=== PATIENT | male | born 1945 | race Caucasian/White ===

== ENCOUNTER 2017-01-13 09:41 | Emergency (ER) | payer BC ==
[2017-01-13 09:46] VITALS: BP 153/80; PULSE 74; TEMP 98.5; BMI 27.3
--- NOTE | 2017-01-13 09:53 | PDOC ---
History of Present Illness - General Chief Complaint: Nausea/Vomiting Stated Complaint: VOMITING Time Seen by Provider: 01/13/17 09:52 Past History - Past Medical History Allergies/Adverse Reactions: Allergies Allergy/AdvReac Type Severity Reaction Status Date / Time No Known Allergies Allergy Verified 01/13/17 09:42 Home Medications: Ambulatory Orders Etanercept [Enbrel] 50 mg SQ WEEKLY 07/01/13 Other medical history: RA, DIVERTICULITIS - Immunization History Td Vaccination: Yes Immunization Up to Date: No - Psycho/Social/Smoking Cessation Hx Suicidal Ideation: No Smoking Status: No Smoking History: Never smoked Number of Cigarettes Smoked Daily: 0 Hx Alcohol Use: Yes Drug/Substance Use Hx: No Substance Use Type: Alcohol *Physical Exam - Vital Signs Last Vital Signs Temp Pulse Resp BP Pulse Ox 98.5 F 74 18 153/80 97 01/13/17 09:41 01/13/17 09:41 01/13/17 09:41 01/13/17 09:41 01/13/17 09:41 - Physical Exam General Appearance: Yes: Nourished, Appropriately Dressed. No: Apparent Distress, Disheveled, Mild Distress, Moderate Distress, Severe Distress, Alcohol on Breath, Intoxicated, Cachetic, Obese, Thin, Other HEENT: positive: EOMI, KELSEY, Normal ENT Inspection, Normal Voice, Symmetrical, TMs Normal, Pharynx Normal. negative: Pale Conjunctivae, Photophobia, Scleral Icterus (R), Scleral Icterus (L), Muffled/Hoarse voice, Pharyngeal Erythema, Tonsillar Exudate, Tonsillar Erythema, Nasal Congestion, Rhinorrhea, Sinus Tenderness, Orbits, Hearing Decreased, Hearing Grossly Normal, TM Bulging, TM Dull, TM Erythema, Lesions, Queen, Excessive drooling, Thrush, Other Neck: positive: Normal Thyroid, Supple. negative: Tender, Trachea midline, Rigid, Carotid bruit, Decreased range of motion, Stridor, Lymphadenopathy (R), Lymphadenopathy (L), Rigidity, Tender lateral, Tender midline, Thyromegaly, Other Respiratory/Chest: positive: Lungs Clear, Normal Breath Sounds. negative: Chest Tender, Respiratory Distress, Accessory Muscle Use, Labored Respiration, Rapid RR, Decreased Breath Sounds, Paradoxal Breathing, Crackles, Rales, Rhonchi , Stridor, Wheezing, Hyperresonant, Dullness, Plerual Rub, Other Cardiovascular: positive: Regular Rhythm, Regular Rate, S1, S2. negative: Edema , JVD, Murmur, Bradycardia, Tachycardia, Diastolic Murmur, Systolic Murmur, Gallop/S3, Gallop/S4, Irregularly Irregular, Irregular, Other Gastrointestinal/Abdominal: positive: Normal Bowel Sounds, Flat, Soft. negative : Tender, Organomegaly, Pulsatile Mass, Increased Bowel Sounds, Decreased BS, Protuberent, Distended, Guarding, Rebound, Tenderness, Hernia, Mass, Hepatomegaly, Spleenomegaly, Other Musculoskeletal: positive: Normal Inspection. negative: CVA Tenderness, CVA Tenderness (R), CVA Tenderness (L), Decreased Range of Motion, Muscle Spasm, Vertebral Tenderness, Other Extremity: positive: Normal Capillary Refill, Normal Inspection, Normal Range of Motion. negative: Tender, Pelvis Stable, Coldness, Cyanosis, Delayed Capillary Refill, Pedal Edema, Swelling, Calf Tenderness, Erythema, Inflammation , Other Integumentary: positive: Normal Color, Dry, Warm. negative: Cyanotic, Erythema , Jaundice, Mottled, Pale, Cold, Clammy, Diaphoresis, Moist, Hives, Petechiae, Rash, Swelling, Ecchymosis, Bruising, Other Neurologic: positive: locator II-XII NML intact, Fully Oriented, Alert, Normal Mood/ Affect, Normal Response, Motor Strength 5/5. negative: Abnormal Cranial NS, Respond to painful stimul, Responsive, EOM Palsy, Facial Droop, Numbness, Sensory Deficit, Finger to Nose, Confused, Disoriented, Depressed Affect, Babinski, Other ED Treatment Course - LABORATORY CBC & Chemistry Diagram: 01/13/17 09:59 01/13/17 09:59 Medical Decision Making - Medical Decision Making 01/13/17 10:05 Ptr has food poisoning from the octopus sautee salad that he ate yesterday. Pt has vomited multiple times overnight. Now with dehydration. No abd pain; mouth dry is his only complaint. Pt has a hx of diverticulitis. No other complaints. No past surgeries. We will check CBC and chem and give NSS 1L and pepcid and reglan. *DC/Admit/Observation/Transfer Diagnosis at time of Disposition: Food poisoning - Discharge Dispostion Disposition: HOME Condition at time of disposition: Stable Admit: No - Patient Instructions Printed Discharge Instructions: DI for Food Poisoning
[2017-01-13] MEDS ORDERED: SODIUM CHLORIDE 0.9% 500 ML INFUS.BAG IV ONE (09:58)
[2017-01-13] MEDS ORDERED: FAMOTIDINE 20 MG/50 ML IVPB 50 ML IVPB ONE (09:58)
[2017-01-13] MEDS ORDERED: METOCLOPRAMIDE HCL INJECTION 10 MG/2 ML VIAL IVPB ONE (09:59)
[2017-01-13 10:25] LABS: BASOPHIL 4.3 % (0-2.0); EOSINOPHIL 0.2 % (0-4.5); MCH 30.5 pg (25.7-33.7); MCHC 33.5 g/dl (32.0-35.9); MEAN CELL VOLUME 90.9 fl (80-96); MEAN PLT VOLUME 9.4 fl (7.5-11.1); NEUTROPHILS 81.6 % (42.8-82.8); PLATELET COUNT 207 K/MM3 (134-434); RDW 12.8 % (11.9-15.9); WHITE BLOOD COUNT 9.1 K/mm3 (4.0-10.0)
[2017-01-13 10:56] LABS: ALK PHOS 54 U/L (32-92); ANION GAP 6 (8-16); BILIRUBIN,TOTAL 1.3 mg/dl (0.2-1.0); CALCIUM 8.8 mg/dl (8.4-10.2); CO2 28 mmol/L (22-28); GLUCOSE,RANDOM 114 mg/dl (74-106); SGOT/AST 21 U/L (10-42); SGPT/ALT 18 U/L (10-40); TOT PROT 6.3 g/dl (6.4-8.3)
== END 2017-01-13 11:27 | disposition home or self-care (01) ==
LOC: FER 09:41
PROC: 3E033GC Introduction of Other Therapeutic Substance into Peripheral Vein, Percutaneous Approach (ICD-10-PCS; principal; 2017-01-13)
DX: T62.91XA Toxic effect of unspecified noxious substance eaten as food, accidental (unintentional), initial encounter (principal); Y92.9 Unspecified place or not applicable; M06.9 Rheumatoid arthritis, unspecified; K57.90 Diverticulosis of intestine, part unspecified, without perforation or abscess without bleeding
CPT/HCPCS: 36415; 80053; 85025; 99283-25

== ENCOUNTER 2018-11-12 02:57 | Emergency (ER) | payer BC ==
--- NOTE | 2018-11-12 03:05 | PDOC ---
History of Present Illness - General Chief Complaint: Respiratory Stated Complaint: URI Time Seen by Provider: 11/12/18 02:59 - History of Present Illness Initial Comments: 11/12/18 03:16 This 73-year-old man with a history of rheumatoid arthritis presents with several day history of nonproductive cough and intermittent wheezing. He was seen by an associate of his PMD 2 days ago and amoxicillin/benzonatate was prescribed. Patient presents with persistent cough, wheezing and difficulty sleeping secondary to his symptoms. Patient states that in the past, he has required an inhaler at times although he has no previous history of asthma and is not a smoker. No history of shortness of breath/chest pain. Past History - Past Medical History Allergies/Adverse Reactions: Allergies Allergy/AdvReac Type Severity Reaction Status Date / Time No Known Allergies Allergy Verified 01/13/17 09:42 Home Medications: Ambulatory Orders Albuterol Sulfate Inhaler - [Ventolin HFA Inhaler -] 1 - 2 inh PO Q4H PRN #1 inhaler 11/12/18 Amoxicillin - [Amoxicillin 500mg Capsule -] 500 mg PO TID 11/12/18 Azithromycin 250 mg PO DAILY #4 tablet 11/12/18 Benzonatate 200 mg PO TID PRN 11/12/18 Doxazosin Mesylate 11/12/18 Hydrocodone Bit/Homatrop Me-Br [Hydrocodone-Homatropine Syrup] 5 ml PO TID PRN # 90 ml MDD 15 ml 11/12/18 Methotrexate 11/12/18 - Immunization History Td Vaccination: Yes Immunization Up to Date: No - Suicide/Smoking/Psychosocial Hx Smoking Status: No Smoking History: Never smoked Number of Cigarettes Smoked Daily: 0 Hx Alcohol Use: Yes Drug/Substance Use Hx: No Substance Use Type: Alcohol Review of Systems - Review of Systems Able to Perform ROS?: Yes Comments:: 12 point review of systems is negative except for what is noted in the history of present illness *Physical Exam - Physical Exam Comments: GENERAL: Adult male, speaking in full sentences, alert and oriented 3, in no acute respiratory distress HEAD: Normal with no signs of trauma. EYES: PERRLA, EOMI, sclera anicteric, conjunctiva clear. ENT: Ears normal, nares patent, oropharynx clear without exudates. Dry mucous membranes. NECK: Normal range of motion, supple without lymphadenopathy, JVD, or masses. LUNGS: Breath sounds equal, scattered expiratory wheezing left greater than right, no crackles. HEART:Regular rate and rhythm, normal S1 and S2 without murmur, rub or gallop. ABDOMEN:.normal bowel sounds No guarding,tenderness or rebound.No masses No distention. EXTREMITIES: Normal range of motion, no edema. No clubbing or cyanosis. No erythema, or tenderness. NEUROLOGICAL: Cranial nerves II through XII grossly intact. Normal speech. No focal neurological deficits. MUSCULOSKELETAL: Back non-tender to palpation, no CVA tenderness SKIN: Warm, Dry, normal turgor, no rashes or lesions noted. Progress Note - Progress Note Progress Note: Patient received DuoNeb treatment for his wheezing. Repeat chest exam after nebulizer treatment revealed marked improvement in air exchange; no significant wheezing heard. Clinical presentation most consistent with bronchitis or early pneumonia. Antibiotic will be changed to azithromycin (Z-Milton). First dose of 500 mg will be given here in the emergency room. Prescription for 250 mg daily for 4 more days sent to his pharmacy. Albuterol inhaler to be used 1-2 puffs every 4-6 hours as needed for wheezing, prescribed. Benzonatate can be continued as needed for [id number] cough. Patient states that he has severe cough that keeps him awake at night. Small (90 mL) prescription for hydrocodone syrup will be sent(5 mL up to 3 times a day as needed for severe cough). Patient should return to the ER if he has shortness of breath/persistent wheezing/high fever. He should plan to follow up with his medical doctor within the next 5 days. *DC/Admit/Observation/Transfer Diagnosis at time of Disposition: Bronchitis - Discharge Dispostion Disposition: HOME Condition at time of disposition: Stable - Prescriptions Prescriptions: Albuterol Sulfate Inhaler - [Ventolin HFA Inhaler -] 1 - 2 inh PO Q4H PRN #1 inhaler PRN Reason: Wheezing Azithromycin 250 mg PO DAILY #4 tablet Hydrocodone Bit/Homatrop Me-Br [Hydrocodone-Homatropine Syrup] 5 ml PO TID PRN # 90 ml MDD 15 ml PRN Reason: Cough - Referrals - Patient Instructions Printed Discharge Instructions: DI for Acute Bronchitis Additional Instructions: Rest; drink plenty of water Stop amoxicillin; begin azithromycin (take with food) Continue azithromycin 250 mg daily with next dose tomorrow with dinner Benzonatate as needed for mild to moderate cough Hydrocodone syrup for severe cough; this will make you sleepy, take only at night Albuterol inhaler 1-2 puffs every 4 hours as needed for wheezing Return to ER if you have severe wheezing/shortness of breath/high fever Follow-up with your medical doctor within the next 5 days - Post Discharge Activity
[2018-11-12 03:07] VITALS: BP 123/78; PULSE 87; TEMP 101.3; BMI 27.3
[2018-11-12] MEDS ORDERED: ALBUTEROL SO4 2.5/IPRATROPIUM 0.5 INH SOL 3 ML VIAL.NEB. NEB ONE ×2 (03:15)
[2018-11-12] MEDS ORDERED: AZITHROMYCIN 250 MG TABLET PO ONE (03:38)
[2018-11-12] MEDS ORDERED: AZITHROMYCIN 500 MG TABLET ONE (03:39)
== END 2018-11-12 03:48 | disposition home or self-care (01) ==
LOC: FER 02:57
PROC: 3E0F7GC Introduction of Other Therapeutic Substance into Respiratory Tract, Via Natural or Artificial Opening (ICD-10-PCS; principal; 2018-11-12)
DX: J40 Bronchitis, not specified as acute or chronic (principal); M06.9 Rheumatoid arthritis, unspecified
CPT/HCPCS: 99281-25

== ENCOUNTER 2018-11-13 03:05 | Inpatient (IN) | payer BC ==
--- NOTE | 2018-11-13 03:23 | PDOC ---
History of Present Illness - General Chief Complaint: Shortness of Breath Stated Complaint: SOB Time Seen by Provider: 11/13/18 03:08 - History of Present Illness Initial Comments: 11/13/18 05:42 73 years old past medical history significant for rheumatoid arthritis on methotrexate, reactive airway disease in the past but no history of asthma or COPD presents to the emergency department with several day history of cough wheezing difficulty breathing. His primary care provider started him on amoxicillin and benzonate 3 days ago. Last night he presented to the emergency department with wheezing and shortness of breath was changed to amoxicillin was given nebulizer breathing treatments and Hycodan for his cough with slight improvement in symptomatology but returned to the emergency department tonight for worsening symptoms. Symptoms are persistent constant with no exacerbating or alleviating factors not relieved by home nebulizer treatment or antibiotics. Past History - Past Medical History Allergies/Adverse Reactions: Allergies Allergy/AdvReac Type Severity Reaction Status Date / Time No Known Allergies Allergy Verified 11/13/18 03:06 Home Medications: Ambulatory Orders Albuterol Sulfate Inhaler - [Ventolin HFA Inhaler -] 1 - 2 inh PO Q4H PRN #1 inhaler 11/12/18 Amoxicillin - [Amoxicillin 500mg Capsule -] 500 mg PO TID 11/12/18 Azithromycin 250 mg PO DAILY #4 tablet 11/12/18 Benzonatate 200 mg PO TID PRN 11/12/18 Hydrocodone Bit/Homatrop Me-Br [Hydrocodone-Homatropine Syrup] 5 ml PO TID PRN # 90 ml MDD 15 ml 11/12/18 Doxazosin Mesylate [Cardura Xl] 4 mg PO DAILY 11/13/18 Methotrexate Sodium [Methotrexate] 2.5 mg PO QUEZADA 11/13/18 COPD: No Other medical history: RA - Immunization History Td Vaccination: Yes Immunization Up to Date: No - Suicide/Smoking/Psychosocial Hx Smoking Status: No Smoking History: Former smoker Have you smoked in the past 12 months: No Number of Cigarettes Smoked Daily: 0 If you are a former smoker, when did you quit?: 42 yrs ago Information on smoking cessation initiated: No Hx Alcohol Use: No Drug/Substance Use Hx: No Substance Use Type: Alcohol Review of Systems - Review of Systems Comments:: 11/13/18 05:42 ROS: A complete review of 10 out of 10 review of systems is taken and is negative apart from what is previously mentioned below and in the HPI. *Physical Exam - Vital Signs Last Vital Signs Temp Pulse Resp BP Pulse Ox 98.5 F 76 19 156/90 95 11/13/18 03:07 11/13/18 03:07 11/13/18 03:07 11/13/18 03:07 11/13/18 03:07 - Physical Exam Comments: 11/13/18 05:43 Vitals: Triage Vital signs reviewed General Appearance: no acute distress, well nourished well developed, Head: Atraumatic, Chest Wall: Nontender Cardiac: Regular rate and rhythym, no murmurs, no rubs, no gallops, Lungs: Bilateral end expiratory wheeze Abdomen: Soft, non distended, normal bowel sounds, non tender to palpation Extremities: Full range of motion to all extremities, no cyanosis, clubbing, or edema Skin: Warm and dry, no rashes or lesions, no rash, no petechiae Psych: normal mood, normal affect Moderate Sedation - Procedure Monitoring Vital Signs: Procedure Monitoring Vital Signs Temperature 98.5 F 11/13/18 03:07 Pulse Rate 76 11/13/18 03:07 Respiratory Rate 19 11/13/18 03:07 Blood Pressure 156/90 11/13/18 03:07 O2 Sat by Pulse Oximetry (%) 95 11/13/18 03:07 ED Treatment Course - LABORATORY CBC & Chemistry Diagram: 11/13/18 04:20 11/13/18 04:20 Medical Decision Making - Medical Decision Making 11/13/18 05:44 73 years old past medical history significant for rheumatoid arthritis on methotrexate, reactive airway disease in the past but no history of asthma or COPD presents to the emergency department with several day history of cough wheezing difficulty breathing. His primary care provider started him on amoxicillin and benzonate 3 days ago. Last night he presented to the emergency department with wheezing and shortness of breath was changed to amoxicillin was given nebulizer breathing treatments and Hycodan for his cough with slight improvement in symptomatology but returned to the emergency department tonight for worsening symptoms. Symptoms are persistent constant with no exacerbating or alleviating factors not relieved by home nebulizer treatment or antibiotics. Patient returns to the emergency department with persistent wheezing We'll treat with 3 DuoNeb's IV Solu-Medrol observe and reassess Reevaluation 430 patient wheezing and dishing and normal albuterol given now with room air oxygen of 89-91% Reevaluation 5:30 patient requiring supplemental oxygen to maintain sat of 95% still with mild expiratory wheezes at this point given persistence of symptomatology we'll observe in hospital for IV steroids continue albuterol treatments and further management. *DC/Admit/Observation/Transfer Diagnosis at time of Disposition: Acute wheezy bronchitis - Discharge Dispostion Condition at time of disposition: Stable Decision to Admit order: Yes - Referrals - Patient Instructions - Post Discharge Activity
[2018-11-13] MEDS ORDERED: ALBUTEROL SO4 2.5/IPRATROPIUM 0.5 INH SOL 3 ML VIAL.NEB. NEB ONE ×2 (03:24→03:32)
[2018-11-13] MEDS ORDERED: methylPREDNISolone NA SUCC 125 MG/2 ML VIAL IVPUSH ONE (03:24)
[2018-11-13] MEDS ORDERED: methylPREDNISolone NA SUCC 125 MG/2 ML VIAL ONE (03:31)
[2018-11-13] MEDS ORDERED: ALBUTEROL SO4 0.083% IH SOL 2.5 MG/3 ML VIAL.NEB. NEB ONE (04:48)
[2018-11-13] MEDS: ALBUTEROL SO4 0.083% IH SOL 2.5 MG/3 ML VIAL.NEB. NEB SCH ×7 (04:50→21:25)
[2018-11-13] MEDS ORDERED: HEMOQUE TEST 1 EACH EACH ONE ×2 (04:55→05:01)
[2018-11-13 04:58] LABS: BASO % 0.7 % (0-2.0); EOS % 0.8 % (0-4.5); HEMATOCRIT 39.1 % (35.4-49); HEMOGLOBIN 13.8 GM/dL (11.7-16.9); LYMPH % 28.9 % (8-40); MCH 32.7 pg (25.7-33.7); MCHC 35.2 g/dl (32.0-35.9); MEAN CELL VOLUME 92.8 fl (80-96); MEAN PLT VOLUME 9.4 fl (7.5-11.1); NEUT % 56.6 % (42.8-82.8); PLATELET COUNT 160 K/MM3 (134-434); RBC 4.21 M/mm3 (4.00-5.60); RDW 14.8 % (11.9-15.9); WHITE BLOOD COUNT 4.8 K/mm3 (4.0-10.0)
[2018-11-13 05:26] LABS: ALBUMIN 3.5 g/dl (3.4-5.0); ALK PHOS 65 U/L (45-117); ANION GAP 5 MMOL/L (8-16); BILIRUBIN,TOTAL 0.5 mg/dL (0.2-1); BLOOD UREA NITROGEN 15 mg/dL (7-18); CALCIUM 8.3 mg/dL (8.5-10.1); CHLORIDE 101 mmol/L (98-107); CO2 30 mmol/L (21-32); CREATININE 1.1 mg/dL (0.55-1.3); GLUCOSE,RANDOM 93 mg/dL (74-106); POTASSIUM 4.2 mmol/L (3.5-5.1); SGOT/AST 26 U/L (15-37); SGPT/ALT 29 U/L (13-61); SODIUM 137 mmol/L (136-145); TOT PROT 6.5 g/dl (6.4-8.2)
[2018-11-13] MEDS ORDERED: guaiFENesin 200 MG/10 ML 10 ML UNIT-DOSE CUPS PO PRN (06:40)
--- NOTE | 2018-11-13 07:56 | HP ---
CHIEF COMPLAINT: Wheezing, SOB PCP: Latanya Del Toro HISTORY OF PRESENT ILLNESS: 73 year-old male with a PMH significant for rheumatoid arthritis. Patient has been feeling fatigued with SOB, BEDOLLA, and decreased exercise tolerance for months. He suffers from sleep apnea x 5 years but does not use CPAP. He often awakens from sleep feeling startled, anxious, and SOB. About three days ago patient started to experience cough, wheezing, and sweats. He was seen by his PMD on 11/10 and prescribed amoxicillin and Tessalon. Patient then presented to the ED on 11/11 and was given nebulizer treatments and prescriptions for azithromycin and Hycodan cough syrup. Patient re-presented to the ED early this morning for continued symptoms. In the ED patient was wheezing and satting 89-91 % on room air. Patient denies cardiac history but states he had an echo one year ago for "skipped beats." He has been told he has reactive airway disease and uses an inhaler on occasion. ER course was notable for: (1) afebrile, WBC 4.8k (2) CXR: no infiltrate (3) duonebs x 3; solumedrol 125mg x 1 Recent Travel: No PAST MEDICAL HISTORY Rheumatoid arthritis PAST SURGICAL HISTORY: Social History: Smoking: quit 32 years ago; smoked for 20+ years Alcohol: occasional Drugs: no Family History: Allergies No Known Allergies Allergy (Verified 11/13/18 03:06) HOME MEDICATIONS: Home Medications Medication Instructions Recorded Albuterol Sulfate Inhaler - 1 - 2 inh PO Q4H PRN #1 inhaler 11/12/18 [Ventolin HFA Inhaler -] Amoxicillin - [Amoxicillin 500mg 500 mg PO TID 11/12/18 Capsule -] Azithromycin 250 mg PO DAILY #4 tablet 11/12/18 Benzonatate 200 mg PO TID PRN 11/12/18 Hydrocodone Bit/Homatrop Me-Br 5 ml PO TID PRN #90 ml MDD 15 ml 11/12/18 [Hydrocodone-Homatropine Syrup] Doxazosin Mesylate [Cardura Xl] 4 mg PO DAILY 11/13/18 Methotrexate Sodium [Methotrexate] 2.5 mg PO QUEZADA 11/13/18 REVIEW OF SYSTEMS CONSTITUTIONAL: Absent: fever, chills, diaphoresis, generalized weakness, malaise, loss of appetite, weight change HEENT: Absent: rhinorrhea, nasal congestion, throat pain, throat swelling, difficulty swallowing, mouth swelling, ear pain, eye pain, visual changes CARDIOVASCULAR: Absent: chest pain, syncope, palpitations, irregular heart rate, lightheadedness , peripheral edema RESPIRATORY: +cough, wheezing, SOB, BEDOLLA, awakes from sleep startled and anxious Absent: shortness of breath, dyspnea with exertion, orthopnea, stridor, hemoptysis GASTROINTESTINAL: Absent: abdominal pain, abdominal distension, nausea, vomiting, diarrhea, constipation, melena, hematochezia GENITOURINARY: Absent: dysuria, frequency, urgency, hesitancy, hematuria, flank pain, genital pain MUSCULOSKELETAL: Absent: myalgia, arthralgia, joint swelling, back pain, neck pain SKIN: Absent: rash, itching, pallor HEMATOLOGIC/IMMUNOLOGIC: Absent: easy bleeding, easy bruising, lymphadenopathy, frequent infections ENDOCRINE: Absent: unexplained weight gain, unexplained weight loss, heat intolerance, cold intolerance NEUROLOGIC: Absent: headache, focal weakness or paresthesias, dizziness, unsteady gait, seizure, mental status changes, bladder or bowel incontinence PSYCHIATRIC: Absent: anxiety, depression, suicidal or homicidal ideation, hallucinations. PHYSICAL EXAMINATION Vital Signs - 24 hr 11/13/18 11/13/18 11/13/18 03:07 03:52 05:53 Temperature 98.5 F Pulse Rate 76 Pulse Rate [ 99 H Left Radial] Respiratory 19 20 Rate Blood Pressure 156/90 Blood Pressure 110/66 [Right Arm] O2 Sat by Pulse 95 95 96 Oximetry (%) GENERAL: Awake, alert, and fully oriented, in no acute distress. HEAD: Normal with no signs of trauma. EYES: Pupils equal, round and reactive to light, extraocular movements intact, sclera anicteric, conjunctiva clear. No lid lag. EARS, NOSE, THROAT: Ears normal, nares patent, oropharynx clear without exudates. Moist mucous membranes. NECK: Normal range of motion, supple without lymphadenopathy, JVD, or masses. LUNGS: Breath sounds equal, clear to auscultation bilaterally. No wheezes, and no crackles. No accessory muscle use. Able to speak in complete sentences. HEART: Regular rate and rhythm, normal S1 and S2; +murmur ABDOMEN: Soft, nontender, not distended, normoactive bowel sounds MUSCULOSKELETAL: Normal range of motion at all joints. No bony deformities or tenderness. No CVA tenderness. UPPER EXTREMITIES: 2+ pulses, warm, well-perfused. No cyanosis. No clubbing. No peripheral edema. LOWER EXTREMITIES: 2+ pulses, warm, well-perfused. No calf tenderness. No peripheral edema. NEUROLOGICAL: Cranial nerves II-XII intact. Normal speech. PSYCHIATRIC: Appears anxious. SKIN: Warm, dry, normal turgor Laboratory Results - last 24 hr 11/13/18 11/13/18 11/13/18 04:20 04:20 04:20 WBC 4.8 RBC 4.21 Hgb 13.8 Hct 39.1 MCV 92.8 MCH 32.7 MCHC 35.2 RDW 14.8 Plt Count 160 MPV 9.4 Absolute Neuts (auto) 2.7 Neutrophils % 56.6 Lymphocytes % 28.9 Monocytes % 13.0 H Eosinophils % 0.8 Basophils % 0.7 Nucleated RBC % 0 Sodium 137 Potassium 4.2 Chloride 101 Carbon Dioxide 30 Anion Gap 5 L BUN 15 Creatinine 1.1 Creat Clearance w eGFR > 60 Random Glucose 93 Calcium 8.3 L Total Bilirubin 0.5 AST 26 ALT 29 Alkaline Phosphatase 65 Total Protein 6.5 Albumin 3.5 Influenza A (Rapid) Negative Influenza B (Rapid) Negative ASSESSMENT/PLAN 73 year-old male with a PMH significant for rheumatoid arthritis, placed on observation wheezing and SOB. Shortness of breath Wheezing --Infectious --afebrile, no leukocytosis, no wheezing on this exam; now satting 95% on room air; CXR: no infiltrate --was started on azithromycin yesterday, will continue empirically --Reactive airway disease --never diagnosed with asthma or COPD; uses albuterol inhaler PRN, few times a year --continue steroids --pulmonary consult pending Obstructive sleep apnea --diagnosed 5 years ago after a sleep study, did not follow up --will order CPAP at night r/o heart failure --+murmur; fluid in horizontal fissure, reports feeling fatigued for months with symptoms of SOB, BEDOLLA, decreased exercise tolerance --had echo one year ago for "skipped heart beats"; cannot recall name of ordering provider, no follow up --echo ordered --BNP pending --lungs clear on exam, satting 95%, no diuretics for now Rheumatoid arthritis --continue methotrexate weekly FEN Fluids: PO intake adequate Electrolytes: replete as indicated Nutrition: regular diet DVT prophylais: subq lovenox Dispo: continues to require inpatient care. Full code. Visit type - Emergency Visit Emergency Visit: Yes ED Registration Date: 11/13/18 Care time: The patient presented to the Emergency Department on the above date and was hospitalized for further evaluation of their emergent condition. - New Patient This patient is new to me today: Yes Date on this admission: 11/13/18 - Critical Care Critical Care patient: No
[2018-11-13 09:35] VITALS: BMI 30.9
--- NOTE | 2018-11-13 09:35 | EKG ---
Test Reason : Blood Pressure : / mmHG Vent. Rate : 094 BPM Atrial Rate : 094 BPM P-R Int : 138 ms QRS Dur : 104 ms QT Int : 358 ms P-R-T Axes : 031 -15 077 degrees QTc Int : 447 ms NORMAL SINUS RHYTHM NONSPECIFIC T WAVE ABNORMALITY ABNORMAL ECG NO PREVIOUS ECGS AVAILABLE Confirmed by AMOS WEBBER, KOBE ([id number]) on 11/13/2018 9:34:56 AM Referred By: MD GUSTAFSON Confirmed By:KOBE TRINIDAD MD
[2018-11-13] MEDS ORDERED: DOXAZOSIN MESYLATE 4 MG PO SCH (10:00)
[2018-11-13] MEDS ORDERED: DOXAZOSIN MESYLATE 2 MG TABLET (FP) PO SCH (10:00)
[2018-11-13] MEDS: DOXAZOSIN MESYLATE 4 MG TABLET PO SCH ×3 (10:45→21:26)
[2018-11-13] MEDS ORDERED: PT OWN MED DRAWER 7, Y5N ONE (11:14)
[2018-11-13] MEDS ORDERED: DOXAZOSIN MESYLATE 4 MG TABLET PO SCH (11:18)
[2018-11-13] MEDS: methylPREDNISolone NA SUCC 40 MG/1 ML VIAL IVPUSH SCH ×2 (12:26→17:13)
[2018-11-13] MEDS: AZITHROMYCIN 250 MG TABLET PO SCH (12:59)
[2018-11-13 13:25] LABS: N-TERMINAL BNP 90.5 pg/ml (5-125)
--- NOTE | 2018-11-13 14:56 | CON.PULM ---
Consult Consult Specialty:: PULMONARY Referred by:: DIANE Reason for Consultation:: COUGH/WHEEZE/SOB - History of Present Illness Chief Complaint: COUGH/WHEEZE/ANXIETY History of Present Illness: 73 year old male with past medical history significant for rheumatoid arthritis on methotrexate, reactive airway disease in the past but no history of asthma or COPD presents to the emergency department with several day history of cough wheezing difficulty breathing. His primary care provider started him on amoxicillin and benzonate 3 days ago. Last night he presented to the emergency department with wheezing and shortness of breath was changed to amoxicillin was given nebulizer breathing treatments and Hycodan for his cough with slight improvement in symptoms. He returned to the emergency department last evening for worsening symptoms. Symptoms are constant with no exacerbating or alleviating factors not relieved by home nebulizer treatment or antibiotics. 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 No: Fibromyalgia ENT: No: Allergic Rhinitis Endocrine: No: Diabetes Mellitus - Past Surgical History Past Surgical History: Yes: None - Alcohol/Substance Use Hx Alcohol Use: No - Smoking History Smoking history: Former smoker Have you smoked in the past 12 months: No Aproximately how many cigarettes per day: 0 If you are a former smoker, when did you quit?: 42 yrs ago - Social History History of Recent Travel: No Home Medications - Allergies Allergies/Adverse Reactions: Allergies Allergy/AdvReac Type Severity Reaction Status Date / Time No Known Allergies Allergy Verified 11/13/18 03:06 - Home Medications Home Medications: Ambulatory Orders Albuterol Sulfate Inhaler - [Ventolin HFA Inhaler -] 1 - 2 inh PO Q4H PRN #1 inhaler 11/12/18 Amoxicillin - [Amoxicillin 500mg Capsule -] 500 mg PO TID 11/12/18 Azithromycin 250 mg PO DAILY #4 tablet 11/12/18 Benzonatate 200 mg PO TID PRN 11/12/18 Hydrocodone Bit/Homatrop Me-Br [Hydrocodone-Homatropine Syrup] 5 ml PO TID PRN # 90 ml MDD 15 ml 11/12/18 Doxazosin Mesylate [Cardura] 4 mg PO DAILY 11/13/18 Methotrexate Sodium [Methotrexate] 15 mg PO QUEZADA 11/13/18 Family Disease History - Family Disease History Family History: Unremarkable Review of Systems - Review of Systems Constitutional: denies: Fever Eyes: denies: Blurred Vision HENT: denies: Difficult Swallowing Neck: denies: Decreased ROM Cardiovascular: denies: Chest Pain Respiratory: reports: Cough, Exercise Intolerance, SOB, SOB on Exertion, Wheezing. denies: Hemoptysis Gastrointestinal: denies: Abdominal Pain Genitourinary: denies: Burning Breasts: reports: No Symptoms Reported Physical Exam Vital Sings: Vital Signs Temperature 98.4 F 11/13/18 14:06 Pulse Rate 88 11/13/18 14:06 Respiratory Rate 20 11/13/18 14:06 Blood Pressure 132/61 11/13/18 14:06 O2 Sat by Pulse Oximetry (%) 100 11/13/18 14:06 Constitutional: Yes: Anxious Eyes: Yes: EOM Intact HENT: Yes: Normocephalic Neck: Yes: Trachea Midline Cardiovascular: Yes: Regular Rate and Rhythm Respiratory: Yes: Rhonchi, Wheezes Gastrointestinal: Yes: Normal Bowel Sounds Edema: No Neurological: Yes: Alert Labs: CBC, BMP 11/13/18 04:20 11/13/18 04:20 rest reviewed Imaging - Results X-ray: Report Reviewed, Image Reviewed Problem List - Problems (1) Acute wheezy bronchitis Code(s): J20.9 - ACUTE BRONCHITIS, UNSPECIFIED (2) Bronchitis Code(s): J40 - BRONCHITIS, NOT SPECIFIED ACUTE OR CHRONIC Assessment/Plan IV STEROIDS BRONCHODILATORS ANTIBIOTICS O2 NEEDED DAILY PEAK FLOW XANAX PRN WILL FOLLOW THANK YOU Yoseph PEREZ MD
[2018-11-13] MEDS: ALPRAZolam 0.25 MG TABLET PO PRN (16:05)
[2018-11-14] MEDS: methylPREDNISolone NA SUCC 40 MG/1 ML VIAL IVPUSH SCH ×3 (02:10→18:11)
[2018-11-14] MEDS: ALBUTEROL SO4 0.083% IH SOL 2.5 MG/3 ML VIAL.NEB. NEB SCH ×3 (08:00→20:03)
[2018-11-14 08:09] LABS: HEMATOCRIT 42.5 % (35.4-49); HEMOGLOBIN 13.7 GM/dl (11.7-16.9); MCH 30.9 pg (25.7-33.7); MCHC 32.1 g/dl (32.0-35.9); MEAN CELL VOLUME 96.1 fl (80-96); MEAN PLT VOLUME 9.1 fl (7.5-11.1); MONO % 5.1 % (3.8-10.2); NEUT % 87.9 % (42.8-82.8); PLATELET COUNT 173 K/MM3 (134-434); RBC 4.43 M/mm3 (4.00-5.60); RDW 13.9 % (11.9-15.9); WHITE BLOOD COUNT 9.3 K/mm3 (4.0-10.8)
[2018-11-14 08:18] LABS: ALBUMIN 3.6 g/dl (3.5-5.0); ALK PHOS 53 U/L (32-92); ANION GAP 7 MMOL/L (8-16); BILIRUBIN,TOTAL 0.5 mg/dl (0.2-1.0); BLOOD UREA NITROGEN 19 mg/dl (7-18); CALCIUM 9.2 mg/dl (8.4-10.2); CHLORIDE 103 mmol/L (98-107); CO2 25 mmol/L (22-28); GLUCOSE,RANDOM 142 mg/dl (74-106); MAGNESIUM 2.2 mg/dL (1.8-2.4); POTASSIUM 4.4 mmol/L (3.5-5.1); SGOT/AST 25 U/L (10-42); SGPT/ALT 24 U/L (10-40); SODIUM 135 mmol/L (136-145); TOT PROT 6.4 g/dl (6.4-8.3)
[2018-11-14] MEDS: ENOXAPARIN NA (PORCINE) 40 MG/0.4 ML DISP.SYRIN SQ SCH (09:23)
[2018-11-14] MEDS: AZITHROMYCIN 250 MG TABLET PO SCH (09:23)
--- NOTE | 2018-11-14 10:26 | PN ---
Progress Note, Physician History of Present Illness: PULMONARY ALERT,STILL C/O COUGH ,SOB,CONGESTION. O2 SAT 93% ON NC L - Current Medication List Current Medications: Active Medications Albuterol Sulfate (Ventolin 0.083% Nebulizer Soln -) 1 amp NEB RTID [facility] Last Admin: 11/14/18 08:00 Dose: 1 amp Alprazolam (Xanax -) 0.5 mg PO BID PRN PRN Reason: ANXIETY Last Admin: 11/13/18 16:05 Dose: 0.5 mg Azithromycin (Zithromax -) 250 mg PO DAILY [facility] Last Admin: 11/14/18 09:23 Dose: 250 mg Doxazosin Mesylate (Cardura -) 4 mg PO HS [facility] Last Admin: 11/13/18 21:26 Dose: 4 mg Enoxaparin Sodium (Lovenox -) 40 mg SQ DAILY [facility] Last Admin: 11/14/18 09:23 Dose: 40 mg Guaifenesin (Robitussin -) 10 ml PO Q6H PRN PRN Reason: COUGH Methotrexate (Mexate -) 2.5 mg PO QUEZADA [facility] Methylprednisolone Sodium Succinate (Solu-Medrol -) 40 mg IVPUSH Q8H-IV [facility] Last Admin: 11/14/18 09:22 Dose: 40 mg - Objective Vital Signs: Vital Signs Temperature 97.8 F 11/14/18 09:55 Pulse Rate 76 11/14/18 09:55 Respiratory Rate 18 11/14/18 09:55 Blood Pressure 141/80 11/14/18 09:55 O2 Sat by Pulse Oximetry (%) 98 11/14/18 09:55 Constitutional: Yes: Well Nourished, Calm Eyes: Yes: WNL HENT: Yes: WNL Neck: Yes: WNL Cardiovascular: Yes: Regular Rate and Rhythm, S1, S2 Respiratory: Yes: Wheezes (SCATTERED KASH WHEEZES) Gastrointestinal: Yes: Normal Bowel Sounds, Soft Extremities: Yes: WNL Edema: No Labs: CBC, BMP 11/14/18 07:25 11/14/18 07:25 Assessment/Plan Problem List - Problems (1) Acute wheezy bronchitis Code(s): J20.9 - ACUTE BRONCHITIS, UNSPECIFIED (2) Bronchitis Code(s): J40 - BRONCHITIS, NOT SPECIFIED ACUTE OR CHRONIC Assessment/Plan IV STEROIDS SAME DOSE INHALED BRONCHODILATORS ANTIBIOTICS O2 NEEDED DAILY PEAK FLOW OUTPATIENT PFTS XANAX PRN DR MANCILLA
[2018-11-14] MEDS: BUDESONIDE/FORMETEROL FUMARATE 160/4.5 mcg INHALER IH SCH ×2 (11:49→21:41)
[2018-11-14] MEDS: FOLIC ACID 1 MG TABLET (FP) PO SCH (16:54)
[2018-11-14] MEDS: POLYETHYLENE GLYCOL 3350 119 GM BTL PO SCH ×3 (16:56→23:47)
[2018-11-14] MEDS: DOXAZOSIN MESYLATE 4 MG TABLET PO SCH (21:31)
[2018-11-14] MEDS ORDERED: PT OWN MED DRAWER 7, Y5N ONE (21:32)
--- NOTE | 2018-11-14 21:32 | PN ---
Physical Exam: SUBJECTIVE: Patient seen and examined OBJECTIVE: Vital Signs Period Temp Pulse Resp BP Sys/Neil Pulse Ox Last 24 Hr 97.4 F-98.3 F 69-76 18-19 122-149/60-88 94-99 GENERAL: The patient is awake, alert, and fully oriented, in no acute distress. HEAD: Normal with no signs of trauma. EYES: PERRL, extraocular movements intact, sclera anicteric, conjunctiva clear. No ptosis. ENT: Ears normal, nares patent, oropharynx clear without exudates, moist mucous membranes. NECK: Trachea midline, full range of motion, supple. LUNGS: Breath sounds equal, clear to auscultation bilaterally, no wheezes, no crackles, no accessory muscle use. HEART: Regular rate and rhythm, S1, S2 without murmur, rub or gallop. ABDOMEN: Soft, nontender, nondistended, normoactive bowel sounds, no guarding, no rebound, no hepatosplenomegaly, no masses. EXTREMITIES: 2+ pulses, warm, well-perfused, no edema. NEUROLOGICAL: Cranial nerves II through XII grossly intact. Normal speech, gait not observed. PSYCH: Normal mood, normal affect. SKIN: Warm, dry, normal turgor, no rashes or lesions noted Laboratory Results - last 24 hr 11/14/18 11/14/18 07:25 07:25 WBC 9.3 RBC 4.43 Hgb 13.7 Hct 42.5 MCV 96.1 H MCH 30.9 MCHC 32.1 RDW 13.9 Plt Count 173 MPV 9.1 Absolute Neuts (auto) 8.1 Neutrophils % 87.9 H Lymphocytes % 7.0 L D Monocytes % 5.1 D Eosinophils % 0.0 D Basophils % 0.0 Sodium 135 L Potassium 4.4 Chloride 103 Carbon Dioxide 25 Anion Gap 7 L BUN 19 H Creatinine 1.0 Creat Clearance w eGFR > 60 Random Glucose 142 H D Calcium 9.2 Magnesium 2.2 Total Bilirubin 0.5 AST 25 ALT 24 D Alkaline Phosphatase 53 Total Protein 6.4 Albumin 3.6 Active Medications Generic Name Dose Route Start Last Admin Trade Name Freq PRN Reason Stop Dose Admin Albuterol Sulfate 1 amp 11/13/18 20:00 11/14/18 20:03 Ventolin 0.083% Nebulizer Soln - NEB 1 amp RTID WANDER Administration Alprazolam 0.5 mg 11/13/18 14:57 11/13/18 16:05 Xanax - PO 0.5 mg BID PRN Administration ANXIETY Azithromycin 250 mg 11/13/18 13:00 11/14/18 09:23 Zithromax - PO 250 mg DAILY WANDER Administration Budesonide/Formoterol Fumarate 2 puff 11/14/18 11:00 11/14/18 11:49 Symbicort 160/4.5mcg - IH 2 puff BID WANDER Administration Doxazosin Mesylate 4 mg 11/13/18 22:00 11/14/18 21:31 Cardura - PO 4 mg HS WANDER Administration Enoxaparin Sodium 40 mg 11/14/18 10:00 11/14/18 09:23 Lovenox - SQ 40 mg DAILY WANDER Administration Folic Acid 1 mg 11/14/18 16:30 11/14/18 16:54 Folic Acid - PO 1 mg DAILY WANDER Administration Guaifenesin 10 ml 11/13/18 06:40 Robitussin - PO Q6H PRN COUGH Methotrexate 2.5 mg 11/19/18 08:34 Mexate - PO QUEZADA [facility] Methylprednisolone Sodium Succinate 40 mg 11/13/18 12:00 11/14/18 18:11 Solu-Medrol - IVPUSH 40 mg Q8H-IV WANDER Administration Polyethylene Glycol 17 gm 11/14/18 15:26 11/14/18 16:56 Miralax (For Daily Use) - PO 17 grams BID WANDER Administration ASSESSMENT/PLAN:
[2018-11-14] MEDS: ALPRAZolam 0.25 MG TABLET PO PRN (23:46)
[2018-11-15] MEDS: methylPREDNISolone NA SUCC 40 MG/1 ML VIAL IVPUSH SCH ×2 (01:41→09:45)
[2018-11-15] MEDS ORDERED: PT OWN MED DRAWER 7, Y5N ONE ×2 (06:58→09:36)
[2018-11-15] MEDS: ALBUTEROL SO4 0.083% IH SOL 2.5 MG/3 ML VIAL.NEB. NEB SCH (08:00)
[2018-11-15] MEDS: ENOXAPARIN NA (PORCINE) 40 MG/0.4 ML DISP.SYRIN SQ SCH (09:41)
[2018-11-15] MEDS: FOLIC ACID 1 MG TABLET (FP) PO SCH (09:41)
[2018-11-15] MEDS: POLYETHYLENE GLYCOL 3350 119 GM BTL PO SCH (09:45)
[2018-11-15] MEDS: AZITHROMYCIN 250 MG TABLET PO SCH (09:47)
[2018-11-15] MEDS: BUDESONIDE/FORMETEROL FUMARATE 160/4.5 mcg INHALER IH SCH (09:47)
--- NOTE | 2018-11-15 12:19 | PN ---
Progress Note (short form) - Note Progress Note: PULMONARY ANXIOUS OVER "REACTIVE AIRWAYS" VSS/AFEBRILE ANICTERIC CLEAR B/L LUNGS S1S2 BS= NO EDEMA LABS/MEDS/NOTES/IMAGES REVIEWED ACUTE ASTHMATIC BRONCHITIS ANXIETY DISORDER RH ARTHRITIS ON METHOTREXATE WOULD CHANGE MEDS TO ORAL OK TO DISCHARGE FROM PULMONARY STANDPOINT TAPER STEROIDS AN OUTPATIENT NOT QUALIFYING FOR HOME O2 Yoseph PEREZ MD Problem List - Problems (1) Acute wheezy bronchitis Code(s): J20.9 - ACUTE BRONCHITIS, UNSPECIFIED (2) Bronchitis Code(s): J40 - BRONCHITIS, NOT SPECIFIED ACUTE OR CHRONIC
--- NOTE | 2018-11-15 13:32 | DS ---
Physical Exam: SUBJECTIVE: Patient seen and examined OBJECTIVE: Vital Signs Period Temp Pulse Resp BP Sys/Neil Pulse Ox Last 24 Hr 97.8 F-98.0 F 66-89 18-18 124-132/58-63 94-96 PHYSICAL EXAM GENERAL: The patient is awake, alert, and fully oriented, in no acute distress. HEAD: Normal with no signs of trauma. EYES: PERRL, extraocular movements intact, sclera anicteric, conjunctiva clear. ENT: Ears normal, nares patent, oropharynx clear without exudates, moist mucous membranes. NECK: Trachea midline, full range of motion, supple. LUNGS: Breath sounds equal, clear to auscultation bilaterally, no wheezes, no crackles, no accessory muscle use. HEART: Regular rate and rhythm, S1, S2 without murmur, rub or gallop. ABDOMEN: Soft, nontender, nondistended, normoactive bowel sounds, no guarding, no rebound, no hepatosplenomegaly, no masses. EXTREMITIES: 2+ pulses, warm, well-perfused, no edema. NEUROLOGICAL: Cranial nerves II through XII grossly intact. Normal speech, gait not observed. PSYCH: Normal mood, normal affect. SKIN: Warm, dry, normal turgor, no rashes or lesions noted. LABS HOSPITAL COURSE: Date of Admission:11/14/18 Date of Discharge: 11/15/18 Pre hospital course 73 year-old male with a PMH significant for rheumatoid arthritis. Patient has been feeling fatigued with SOB, BEDOLLA, and decreased exercise tolerance for months. He suffers from sleep apnea x 5 years but does not use CPAP. He often awakens from sleep feeling startled, anxious, and SOB. About three days ago patient started to experience cough, wheezing, and sweats. He was seen by his PMD on 11/10 and prescribed amoxicillin and Tessalon. Patient then presented to the ED on 11/11 and was given nebulizer treatments and prescriptions for azithromycin and Hycodan cough syrup. Patient re-presented to the ED early this morning for continued symptoms. In the ED patient was wheezing and satting 89-91 % on room air. Patient denies cardiac history but states he had an echo one year ago for "skipped beats." He has been told he has reactive airway disease and uses an inhaler on occasion. ER course was notable for: (1) afebrile, WBC 4.8k (2) CXR: no infiltrate (3) duonebs x 3; solumedrol 125mg x 1 Subsequent hospital course Minutes to complete discharge: 35 Discharge Summary Reason For Visit: SOB Current Active Problems Acute wheezy bronchitis (Acute) Condition: Improved - Instructions Diet, Activity, Other Instructions: You should follow up with your primary care provider within one week of your discharge. Return to the emergency department for any new or worsening symptoms. Referrals: Elisabet Corey Dr. [Other] Disposition: HOME - Home Medications Comprehensive Discharge Medication List: Ambulatory Orders Albuterol Sulfate Inhaler - [Ventolin HFA Inhaler -] 1 - 2 inh PO Q4H PRN #1 inhaler 11/12/18 Doxazosin Mesylate [Cardura] 4 mg PO DAILY 11/13/18 Methotrexate Sodium [Methotrexate] 15 mg PO QUEZADA 11/13/18 This patient is new to me today: No Emergency Visit: Yes ED Registration Date: 11/14/18 Care time: The patient presented to the Emergency Department on the above date and was hospitalized for further evaluation of their emergent condition. Critical Care patient: No - Discharge Referral Referred to [facility] No
[2018-11-15 14:09] VITALS: BP 132/69; PULSE 68; TEMP 98.2
[2018-11-19] MEDS ORDERED: METHOTREXATE 2.5 MG TABLET PO SCH (08:34)
== END 2018-11-15 14:23 | disposition home or self-care (01) | DRG 203 ==
LOC: FER 03:05 → FM/S 05:46 → UNDOADMOB 06:13 → OBSVTOIN 11-14 13:00
PROVIDERS: ADMIT Internal Medicine; ATTEND Nurse Practitioner Acute Care
PROC: 3E0F7GC Introduction of Other Therapeutic Substance into Respiratory Tract, Via Natural or Artificial Opening (ICD-10-PCS; principal; 2018-11-13)
DX: J45.998 Other asthma (principal); M06.9 Rheumatoid arthritis, unspecified; Z87.891 Personal history of nicotine dependence; G47.33 Obstructive sleep apnea (adult) (pediatric); F41.9 Anxiety disorder, unspecified
CPT/HCPCS: 36415; 71045-TC-FY; 80048; 80053; 83735; 83880; 85025; 87804; 93005; 93306-TC; 94640; 94660; 99284-25; G0378

== ENCOUNTER 2018-11-27 15:00 | Emergency (ER) | payer BC ==
[2018-11-27 15:16] VITALS: TEMP 98.1; BMI 28.0
--- NOTE | 2018-11-27 15:23 | PDOC ---
History of Present Illness - History of Present Illness Initial Comments: This patient is a 73 year-old male with a PMHx significant for rheumatoid arthritis, (recently admitted to the ER for sob and dx with acute wheezy bronchitis 11/12/18-11/15/18), who presents to the ER for 10 days of left calf pain. Patients states that he is usually bikes to work from [place] to the [facility] but hasnt been as active since he was hospitalized earlier this month for bronchitis. He reports that he is unable to go up and down stairs secondary to the pain in his calf. As per his , while inpatient he was on 500 mg amoxicillin 3x/day for 1 day then was switched to 500 g penicillin 1/ day. She states that he was also given codeine cough suppressant by his PMD. He denies any recent injury, falls, travel, chest pain, hemoptysis. No h/o blood clots in the past. Social Hx: Former smoker (quit 32 years ago; smoker for 20+ years) Allergies: NKDA PCP: Alissa Wall <Katerin Good - Last Filed: 11/27/18 15:51> <Joaquin Mascorro - Last Filed: 11/27/18 16:40> - General Chief Complaint: Pain Stated Complaint: LEFT CALF PAIN Time Seen by Provider: 11/27/18 15:18 Past History <Katerin Good - Last Filed: 11/27/18 15:51> - Past Medical History COPD: No Disorders: Yes (bph, overactive bladder) Other medical history: rheumatoid arthritis - Immunization History Td Vaccination: Yes Immunization Up to Date: No - Suicide/Smoking/Psychosocial Hx Smoking Status: No Smoking History: Never smoked Have you smoked in the past 12 months: No Number of Cigarettes Smoked Daily: 0 If you are a former smoker, when did you quit?: 42 yrs ago Information on smoking cessation initiated: No Hx Alcohol Use: No Drug/Substance Use Hx: No Substance Use Type: Alcohol <Joaquin Mascorro - Last Filed: 11/27/18 16:40> - Past Medical History Allergies/Adverse Reactions: Allergies Allergy/AdvReac Type Severity Reaction Status Date / Time No Known Allergies Allergy Verified 11/27/18 15:07 Home Medications: Ambulatory Orders Albuterol Sulfate Inhaler - [Ventolin HFA Inhaler -] 1 - 2 inh PO Q4H PRN #1 inhaler 11/12/18 Doxazosin Mesylate [Cardura] 4 mg PO DAILY 11/13/18 Methotrexate Sodium [Methotrexate] 15 mg PO QUEZADA 11/13/18 Hydrocodone 11/27/18 Review of Systems - Review of Systems Comments:: Constitutional: +recently hospitalized for bronchitis (11/12-11/15) ; no fever ENT: no sore throat Cardiovascular: no palpitations; no chest pain Pulmonary: no cough; no trouble breathing Gastrointestinal: No nausea; no vomiting; no diarrhea Genitourinary: No urinary problems; no hematuria Skin: No rash Lymph system: No swollen glands Musculoskeletal: +left calf pain. No joint swelling Neurological: No weakness; No numbness; No Headache; no vertigo; no lightheadedness Psychiatric:No anxiety; no depression <Katerin Good - Last Filed: 11/27/18 15:51> *Physical Exam - Vital Signs Last Vital Signs Temp Pulse Resp BP Pulse Ox 98.1 F 75 18 92/56 L 98 11/27/18 15:00 11/27/18 15:11/27/18 15:11/27/18 15:11/27/18 15:00 - Physical Exam Comments: Vitals: Triage Vital signs reviewed General Appearance: no acute distress, well nourished well developed Cardiac: Regular rate and rhythm, no murmurs, no rubs, no gallops Lungs: Clear to auscultation bilateral, good air movement bilaterally Abdomen: Soft, non distended, normal bowel sounds, non tender to palpation Extremities: Good pedal pulses bilaterally. Achilles tendon intact, nontender. Left calf muscle tenderness to palpation. Full range of motion to all extremities, no cyanosis, clubbing, or edema Skin: Warm and dry, no rashes or lesions, no rash, no petechiae Neurological: AOX3; Cranial Nerves 2-12 grossly intact, Strength intact to all extremities, Sensation intact to all extremities, gait normal. <Katerin Good - Last Filed: 11/27/18 15:51> - Vital Signs Last Vital Signs Temp Pulse Resp BP Pulse Ox 98.1 F 75 18 92/56 L 98 11/27/18 15:00 11/27/18 15:00 11/27/18 15:00 11/27/18 15:00 11/27/18 15:00 <Joaquin Mascorro - Last Filed: 11/27/18 16:40> Moderate Sedation - Procedure Monitoring Vital Signs: Procedure Monitoring Vital Signs Temperature 98.1 F 11/27/18 15:00 Pulse Rate 75 11/27/18 15:00 Respiratory Rate 18 11/27/18 15:00 Blood Pressure 92/56 L 11/27/18 15:00 O2 Sat by Pulse Oximetry (%) 98 11/27/18 15:00 <Katerin Good - Last Filed: 11/27/18 15:51> - Procedure Monitoring Vital Signs: Procedure Monitoring Vital Signs Temperature 98.1 F 11/27/18 15:00 Pulse Rate 75 11/27/18 15:00 Respiratory Rate 18 11/27/18 15:00 Blood Pressure 92/56 L 11/27/18 15:00 O2 Sat by Pulse Oximetry (%) 98 11/27/18 15:00 <Joaquin Mascorro - Last Filed: 11/27/18 16:40> Medical Decision Making - Medical Decision Making 11/27/18 16:39 No evidence of DVT on ultrasound Likely musculoskeletal We'll recommend rest conservative management NSAIDs Tylenol primary care follow- up and repeat ultrasound if no improvement in symptomatology within 2 weeks Findings, the need for follow-up and strict return instructions discussed with patient. <Joaquin Mascorro - Last Filed: 11/27/18 16:40> *DC/Admit/Observation/Transfer - Attestations Scribe Attestion: 11/27/18 15:57 Documentation prepared by Katerin Good, acting as medical assistant dermatology for Joaquin Mascorro MD. <Katerin Good - Last Filed: 11/27/18 15:51> - Discharge Dispostion Decision to Admit order: No <Joaquin Mascorro - Last Filed: 11/27/18 16:40> Diagnosis at time of Disposition: Calf pain Qualifiers: Laterality: left Qualified Code(s): M79.662 - Pain in left lower leg - Discharge Dispostion Disposition: HOME Condition at time of disposition: Stable - Referrals Referrals: Alissa Wall MD [Primary Care Provider] - - Patient Instructions Printed Discharge Instructions: Calf Muscle Strain Additional Instructions: Rest, ice 20 minutes on 20 minutes off. Alternate Tylenol Motrin as directed on package as needed for pain. Follow-up with your doctor this week he may possibly need physical therapy Return to ED for any swelling chest pain shortness of breath if no improvement in symptoms within 2 weeks please arrange for a repeat ultrasound. - Post Discharge Activity
[2018-11-27 16:41] VITALS: BP 100/70; PULSE 68
== END 2018-11-27 17:00 | disposition home or self-care (01) ==
LOC: FER 15:00
DX: M79.662 Pain in left lower leg (principal); M06.9 Rheumatoid arthritis, unspecified; Z87.891 Personal history of nicotine dependence
CPT/HCPCS: 93971-TC; 99283-25